=== PATIENT | male | born 1965 | race Caucasian/White ===

== ENCOUNTER → 2018-07-25 | Outpatient (CLI) | payer OTHER | END | disposition home or self-care (01) | LOC: CVU 10:32 | PROVIDERS: ATTEND Nurse Practitioner | DX: I70.0 Atherosclerosis of aorta (principal); I35.8 Other nonrheumatic aortic valve disorders; E11.9 Type 2 diabetes mellitus without complications; I10 Essential (primary) hypertension | CPT/HCPCS: 93306 ==

== ENCOUNTER 2021-02-05 13:24 | Emergency (ER) | payer OTHER ==
[~2021-02-05] VITALS: Ht 182.9 cm; Wt 116.3 kg
--- NOTE | 2021-02-05 13:29 | NUR ---
NO ANSWER FROM TRIAGE
[2021-02-05] MEDS ORDERED: IBUPROFEN 600 MG TABLET PO ONE (14:00)
[2021-02-05] MEDS ORDERED: DOXYCYCLINE 100MG TABLET PO ONE (14:00)
[2021-02-05] MEDS ORDERED: DOXYCYCLINE 100MG TABLET ONE (14:08)
[2021-02-05] MEDS ORDERED: IBUPROFEN 600 MG TABLET ONE (14:08)
[2021-02-05 14:34] LABS: ANION GAP 8 mmol/L (5-15); CALCIUM 9.4 mg/dL (8.5-10.1); CHLORIDE 103 mmol/L (98-107); CREATININE 0.83 mg/dL (0.7-1.3)
--- NOTE | 2021-02-05 14:34 | NUR ---
PT MEDICATED ER ORDERS. PT PLACED ON MONITORS, VSS. PT AWAITING LAB RESULTS. CALL LIGHT IN REACH, CONT TO MONITOR.
[2021-02-05 14:57] LABS: BASOPHILS % (AUTO) 0 % (0-1); EOSINOPHILS % (AUTO) 4 % (1-7); LYMPHOCYTES % (AUTO) 20 % (22-44); MEAN PLATELET VOLUME 9.6 fL (7.4-10.4); MONOCYTES % (AUTO) 10 % (2-9); NEUTROPHILS % (AUTO) 66 % (42-75); PLATELET COUNT 148 x10^3/uL (130-400); RED BLOOD COUNT 5.46 x10^6/uL (4.38-5.82); RED CELL DISTRIBUTION WIDTH 13.6 % (9.4-14.8)
--- NOTE | 2021-02-05 16:01 | NUR ---
PER ERMD, PT OK FOR D/C. PT GIVEN D/C INSTRUCTIONS AND VERBALIZED UNDERSTANDING. PT HAS ALL OWN BELONGINGS UPON D/C.
[2021-02-05 16:02] VITALS: BP 134/87
== END 2021-02-05 16:03 | disposition home or self-care (01) ==
LOC: ED 15:33
DX: G89.11 Acute pain due to trauma (principal); M70.21 Olecranon bursitis, right elbow; L03.113 Cellulitis of right upper limb; I10 Essential (primary) hypertension; E11.65 Type 2 diabetes mellitus with hyperglycemia; X58.XXXA Exposure to other specified factors, initial encounter; Y92.89 Other specified places as the place of occurrence of the external cause; Y99.8 Other external cause status
CPT/HCPCS: 36415; 80048; 85025; 99283

== ENCOUNTER 2021-02-08 23:37 | Inpatient (IN) | payer OTHER ==
[~2021-02-08] VITALS: Ht 182.9 cm; Wt 115.9 kg
--- NOTE | 2021-02-09 00:20 | NUR ---
THIS IS A 55M THAT COMES IN FOR WORSENING REDNESS OF L ELBOW, PT DX OF BURSITIS AND CELLULITIS. PT HAS BEEN TAKING DOXY AND MOTRIN AT HOME. STS PAIN AND SWELLING HAVE IMPROVED BUT RED AREA HAS EXPANDED. PT CONNECTED TO MONITORING AT BEDSIDE ANT
[2021-02-09] MEDS ORDERED: CEFTRIAXONE 1,000 MG in DEXTROSE 5% 50 ML IVPB ONE (00:30)
--- NOTE | 2021-02-09 00:38 | NUR ---
PIV STARTED, ABX STARTED, PER DR JAY NO CULTURES TO BE DRAWN PRIOR TO START.
[2021-02-09 00:43] LABS: BASOPHILS % (AUTO) 0 % (0-1); EOSINOPHILS % (AUTO) 5 % (1-7); LYMPHOCYTES % (AUTO) 28 % (22-44); MEAN CORPUSCULAR HEMOGLOBIN 30.1 pg (27.5-34.5); MEAN CORPUSCULAR HGB CONC 34.6 g/dL (33.2-36.2); MEAN PLATELET VOLUME 8.8 fL (7.4-10.4); MONOCYTES % (AUTO) 8 % (2-9); NEUTROPHILS % (AUTO) 59 % (42-75); PLATELET COUNT 214 x10^3/uL (130-400); RED BLOOD COUNT 5.78 x10^6/uL (4.38-5.82); RED CELL DISTRIBUTION WIDTH 13.8 % (9.4-14.8)
[2021-02-09 00:48] LABS: ALANINE AMINOTRANSFERASE 73 U/L (12-78); ALBUMIN 4.2 g/dL (3.4-5.0); ANION GAP 8 mmol/L (5-15); CHLORIDE 104 mmol/L (98-107); CREATININE 0.92 mg/dL (0.7-1.3)
[2021-02-09 00:50] LABS: ALKALINE PHOSPHATASE 61 U/L (45-117); BILIRUBIN,TOTAL 0.6 mg/dL (0.2-1.0); TOTAL PROTEIN 8.7 g/dL (6.4-8.2)
[2021-02-09 00:52] LABS: MD NO
--- NOTE | 2021-02-09 01:03 | NUR ---
REPORT RECIEVED FROM [facility] VERMA
--- NOTE | 2021-02-09 01:37 | NUR ---
IV abx finished, saline lock. Pt to be admitted to med/surg.
[2021-02-09] MEDS ORDERED: LOSA25TA25 PO (01:41)
[2021-02-09] MEDS ORDERED: METF500T17 PO (01:43)
[2021-02-09] MEDS ORDERED: ALLO100T30 PO (01:44)
[2021-02-09] MEDS ORDERED: MELO15TA24 PO (01:45)
[2021-02-09] MEDS ORDERED: DAPA10TA PO (01:48)
--- NOTE | 2021-02-09 01:55 | NUR ---
Report to med/surg, med rec completed. Pt fully ambulatory, no complaints at this time. Ok to tx in [place]. IV saline lock. 141/ P 90
[2021-02-09 02:31] VITALS: BP 142/89
[2021-02-09] MEDS ORDERED: ONDANSETRON 2MG/ML, 2ML IVPush PRN (05:00)
[2021-02-09] MEDS ORDERED: ENALAPRILAT 1.25 MG/ML, 2ML IVPush PRN (05:00)
[2021-02-09] MEDS ORDERED: PHARMACOKINETIC MONITORING MC PRN (07:00)
[2021-02-09] MEDS ORDERED: VANCOMYCIN 2,500 MG in SODIUM CHLORIDE 0.9% 500 ML IV ONE (07:00)
[2021-02-09] MEDS ORDERED: VANCOMYCIN PER PHARMACY MC PRN (07:00)
[2021-02-09 07:12] VITALS: BP 133/83
[2021-02-09] MEDS: PIPERACILLIN/TAZO/PMX 3.375GM 50 ML IV SCH ×3 (08:05→23:38)
[2021-02-09] MEDS: LOSARTAN 25MG TABLET PO SCH (08:06)
[2021-02-09] MEDS: ACETAMINOPHEN 325 MG TABLET PO PRN ×2 (08:07→17:44)
[2021-02-09] MEDS: ALLOPURINOL 100 MG TABLET PO SCH (08:07)
[2021-02-09] MEDS: INSULIN LISPRO 100 UNITS/ML, PEN SQ-INSULIN SCH ×4 (08:08→20:56)
[2021-02-09 13:17] VITALS: BP 135/87
[2021-02-09] MEDS: VANCOMYCIN 2,300 MG in SODIUM CHLORIDE 0.9% 500 ML IV SCH (17:45)
[2021-02-09 18:58] VITALS: BP 126/72
[2021-02-10 00:51] VITALS: BP 143/86
[2021-02-10] MEDS: ACETAMINOPHEN 325 MG TABLET PO PRN ×3 (04:33→20:53)
[2021-02-10 05:58] LABS: BASOPHILS % (AUTO) 0 % (0-1); EOSINOPHILS % (AUTO) 5 % (1-7); LYMPHOCYTES % (AUTO) 30 % (22-44); MEAN CORPUSCULAR HEMOGLOBIN 29.9 pg (27.5-34.5); MEAN CORPUSCULAR HGB CONC 34.5 g/dL (33.2-36.2); MEAN PLATELET VOLUME 8.6 fL (7.4-10.4); MONOCYTES % (AUTO) 9 % (2-9); NEUTROPHILS % (AUTO) 56 % (42-75); PLATELET COUNT 182 x10^3/uL (130-400); RED BLOOD COUNT 5.28 x10^6/uL (4.38-5.82); RED CELL DISTRIBUTION WIDTH 13.6 % (9.4-14.8)
[2021-02-10] MEDS: VANCOMYCIN 2,300 MG in SODIUM CHLORIDE 0.9% 500 ML IV SCH ×2 (06:00→18:10)
[2021-02-10 06:07] LABS: ANION GAP 9 mmol/L (5-15); CHLORIDE 103 mmol/L (98-107); CREATININE 0.76 mg/dL (0.7-1.3)
[2021-02-10 06:10] LABS: MD NO
[2021-02-10 07:26] VITALS: BP 134/85
[2021-02-10] MEDS: LOSARTAN 25MG TABLET PO SCH (08:40)
[2021-02-10] MEDS: ALLOPURINOL 100 MG TABLET PO SCH (08:41)
[2021-02-10] MEDS: INSULIN LISPRO 100 UNITS/ML, PEN SQ-INSULIN SCH ×4 (08:44→20:48)
[2021-02-10] MEDS: PIPERACILLIN/TAZO/PMX 3.375GM 50 ML IV SCH (08:49)
[2021-02-10 13:45] VITALS: BP 108/68
[2021-02-10 19:05] VITALS: BP 116/59
[2021-02-11 01:35] VITALS: BP 145/82
[2021-02-11 05:48] LABS: ANION GAP 7 mmol/L (5-15); CALCIUM 8.8 mg/dL (8.5-10.1); CHLORIDE 105 mmol/L (98-107); CREATININE 0.71 mg/dL (0.7-1.3)
[2021-02-11] MEDS: VANCOMYCIN 2,300 MG in SODIUM CHLORIDE 0.9% 500 ML IV SCH ×2 (05:49→17:33)
[2021-02-11 05:50] LABS: CREATINE KINASE, TOTAL 76 U/L (39-308)
[2021-02-11] MEDS: INSULIN LISPRO 100 UNITS/ML, PEN SQ-INSULIN SCH ×4 (07:00→21:00)
[2021-02-11 07:42] VITALS: BP 158/87
[2021-02-11] MEDS: ACETAMINOPHEN 325 MG TABLET PO PRN ×2 (07:59→16:41)
[2021-02-11] MEDS: LOSARTAN 25MG TABLET PO SCH (08:00)
[2021-02-11] MEDS: ALLOPURINOL 100 MG TABLET PO SCH (08:00)
[2021-02-11 13:59] VITALS: BP 145/85
[2021-02-11 18:33] VITALS: BP 129/80
[2021-02-12 02:51] VITALS: BP 145/81
[2021-02-12] MEDS: VANCOMYCIN 2,300 MG in SODIUM CHLORIDE 0.9% 500 ML IV SCH ×2 (05:46→18:42)
[2021-02-12 05:58] LABS: BASOPHILS % (AUTO) 1 % (0-1); EOSINOPHILS % (AUTO) 6 % (1-7); LYMPHOCYTES % (AUTO) 35 % (22-44); MEAN CORPUSCULAR HGB CONC 34.5 g/dL (33.2-36.2); MEAN PLATELET VOLUME 8.5 fL (7.4-10.4); MONOCYTES % (AUTO) 8 % (2-9); NEUTROPHILS % (AUTO) 51 % (42-75); PLATELET COUNT 189 x10^3/uL (130-400); RED CELL DISTRIBUTION WIDTH 13.6 % (9.4-14.8)
[2021-02-12 06:06] LABS: ANION GAP 6 mmol/L (5-15); CALCIUM 9.1 mg/dL (8.5-10.1); CHLORIDE 105 mmol/L (98-107)
[2021-02-12 06:12] LABS: CREATINE KINASE, TOTAL 80 U/L (39-308); CREATININE 0.65 mg/dL (0.7-1.3)
[2021-02-12 06:22] LABS: MD SCAN
[2021-02-12 07:33] VITALS: BP 145/81
[2021-02-12] MEDS: INSULIN LISPRO 100 UNITS/ML, PEN SQ-INSULIN SCH ×4 (07:49→20:49)
[2021-02-12] MEDS: ALLOPURINOL 100 MG TABLET PO SCH (07:49)
[2021-02-12] MEDS: LOSARTAN 25MG TABLET PO SCH (07:49)
[2021-02-12] MEDS: ACETAMINOPHEN 325 MG TABLET PO PRN ×3 (07:49→20:49)
[2021-02-12 13:08] VITALS: BP 142/81
[2021-02-12] MEDS: INSULIN GLARGINE 100 UNITS/ML, PEN SQ-INSULIN SCH (13:10)
[2021-02-12 20:39] VITALS: BP 167/94
[2021-02-13 02:03] VITALS: BP 129/80
[2021-02-13 05:35] LABS: HCT (SEDRATE) 45.3 % (39.2-51.8)
[2021-02-13 05:42] LABS: BASOPHILS % (AUTO) 1 % (0-1); EOSINOPHILS % (AUTO) 6 % (1-7); LYMPHOCYTES % (AUTO) 34 % (22-44); MEAN CORPUSCULAR HEMOGLOBIN 29.9 pg (27.5-34.5); MEAN PLATELET VOLUME 8.6 fL (7.4-10.4); MONOCYTES % (AUTO) 10 % (2-9); NEUTROPHILS % (AUTO) 50 % (42-75); PLATELET COUNT 196 x10^3/uL (130-400); RED BLOOD COUNT 5.26 x10^6/uL (4.38-5.82); RED CELL DISTRIBUTION WIDTH 13.3 % (9.4-14.8)
[2021-02-13 05:49] LABS: ALBUMIN 3.7 g/dL (3.4-5.0); CALCIUM 8.7 mg/dL (8.5-10.1); CHLORIDE 105 mmol/L (98-107)
[2021-02-13] MEDS: VANCOMYCIN 2,300 MG in SODIUM CHLORIDE 0.9% 500 ML IV SCH (05:58)
[2021-02-13 05:59] LABS: ALANINE AMINOTRANSFERASE 107 U/L (12-78); ALKALINE PHOSPHATASE 52 U/L (45-117); ANION GAP 5 mmol/L (5-15); BILIRUBIN,TOTAL 0.6 mg/dL (0.2-1.0); TOTAL PROTEIN 7.6 g/dL (6.4-8.2)
[2021-02-13 06:16] LABS: MD SCAN
[2021-02-13 07:06] VITALS: BP 148/81
[2021-02-13] MEDS: INSULIN LISPRO 100 UNITS/ML, PEN SQ-INSULIN SCH ×3 (07:31→16:00)
[2021-02-13] MEDS: ACETAMINOPHEN 325 MG TABLET PO PRN ×2 (07:31→13:17)
[2021-02-13] MEDS: LOSARTAN 25MG TABLET PO SCH (09:31)
[2021-02-13] MEDS: ALLOPURINOL 100 MG TABLET PO SCH (09:32)
[2021-02-13] MEDS: INSULIN GLARGINE 100 UNITS/ML, PEN SQ-INSULIN SCH (09:35)
[2021-02-13] MEDS ORDERED: DAPTOMYCIN 700 MG in SODIUM CHLORIDE 0.9% 100 ML IVPB SCH (13:00)
[2021-02-13 14:15] VITALS: BP 155/77
[2021-02-13] MEDS ORDERED: DAPT500V6 IV (14:47)
[2021-02-13] MEDS ORDERED: METF500T17 PO (14:47)
[2021-02-13] MEDS ORDERED: metFORMIN 500 MG TABLET PO SCH (17:00)
== END 2021-02-13 16:15 | disposition home or self-care (01) | DRG 558 ==
LOC: ED 02-09 01:17 → EDIP 02-09 02:10 → 3N 02-09 02:27 → DCLOUNGE 02-13 16:05
PROVIDERS: ADMIT Family Medicine; ATTEND Family Medicine
DX: M71.121 Other infective bursitis, right elbow (principal); L03.113 Cellulitis of right upper limb; E11.65 Type 2 diabetes mellitus with hyperglycemia; I10 Essential (primary) hypertension; M10.9 Gout, unspecified; E66.9 Obesity, unspecified; Z79.84 Long term (current) use of oral hypoglycemic drugs; Z83.3 Family history of diabetes mellitus; Z79.899 Other long term (current) drug therapy; Z88.8 Allergy status to other drugs, medicaments and biological substances
CPT/HCPCS: 36415; 36573; 80048; 80053; 80202; 82550; 82962; 83036; 85025; 85651; 86140; 87040; 96365; G0378; J0696; J0878; J2543; J3370; C1751; J1815; J7040